=== PATIENT | female | born 1940 | race Caucasian/White ===

== ENCOUNTER 2017-01-16 14:57 | Inpatient (IN) | payer MEDICARE, OTHER ==
[2017-01-16] MEDS ORDERED: ENOXAPARIN SODIUM INJ 100 MG/1 ML DISP.SYRIN SUBCUT ONE (15:23)
--- NOTE | 2017-01-16 15:27 | ER Document Report ---
ED General - General Stated Complaint: DIFFICULTY BREATHING Time Seen by Provider: 01/16/17 15:21 Mode of Arrival: Medic Information source: Patient Notes: 76-year-old female with a history of hypertension, GERD, restrictive lung disease from scoliosis, asthma. Patient recently flew up from [place] on January 07 and had an episode of nausea, vomiting and diarrhea for several days after that. She was brought in by ambulance today from her primary care doctor's office because of shortness of breath and wheezing. Patient states normally she is not that short of breath. She denies fever or cough. - HPI Onset: This morning Onset/Duration: Gradual Quality of pain: No pain Severity: None Pain Level: Denies Associated symptoms: Shortness of breath. denies: Chest pain, Fever Exacerbated by: Denies Relieved by: Denies Similar symptoms previously: No Recently seen / treated by doctor: Yes - Related Data Allergies/Adverse Reactions: Benzodiazepines Allergy (Verified 07/03/12 19:19) midazolam HCl [From Versed] Allergy (Verified 07/03/12 19:19) Past Medical History - General Information source: Patient - Social History Smoking Status: Never Smoker Cigarette use (# per day): No Chew tobacco use (# tins/day): No Frequency of alcohol use: None Drug Abuse: None Lives with: Family Family History: Reviewed & Not Pertinent Patient has suicidal ideation: No Patient has homicidal ideation: No - Past Medical History Cardiac Medical History: Reports: Hx Hypertension Denies: Hx Pulmonary Embolism Pulmonary Medical History: Reports: Hx Asthma Denies: Hx Bronchitis, Hx COPD, Hx Pneumonia, Hx Respiratory Failure, Hx Tuberculosis Renal/ Medical History: Denies: Hx End Stage Renal Disease, Hx Kidney Stones, Hx Peritoneal Dialysis Malignancy Medical History: Denies: Hx Lung Cancer GI Medical History: Reports: Hx Gastroesophageal Reflux Disease, Hx Hiatal Hernia. Denies: Hx Crohn's Disease, Hx Irritable Bowel, Hx Liver Failure, Hx Ulcer Musculoskeltal Medical History: Reports Hx Arthritis, Denies Hx Fibromyalgia, Denies Hx Muscular Dystrophy Traumatic Medical History: Denies: Hx Fractures Past Surgical History: Reports: Hx Orthopedic Surgery - right shoulder, right knee, back surgery, right carpal tunnel release, Hx Tonsillectomy. Denies: Hx Colostomy, Hx Pacemaker - Immunizations Hx Diphtheria, Pertussis, Tetanus Vaccination: No Hx Pneumococcal Vaccination: 08/18/10 Review of Systems - Review of Systems Constitutional: denies: Chills, Fever EENT: No symptoms reported Cardiovascular: See HPI Respiratory: See HPI Gastrointestinal: No symptoms reported Genitourinary: No symptoms reported Female Genitourinary: No symptoms reported Musculoskeletal: No symptoms reported Skin: No symptoms reported Hematologic/Lymphatic: No symptoms reported Neurological/Psychological: No symptoms reported Physical Exam - Vital signs Vitals: Pulse Ox 98 01/16/17 15:22 Notes: GENERAL: 76-year-old female history of scoliosis, alert and oriented 3, appears short of breath, vital signs stable. HEAD: Atraumatic, normocephalic. EYES: Extraocular movements intact, sclera anicteric, conjunctiva are normal. ENT: oropharynx clear without exudates. Moist mucous membranes. NECK: Normal range of motion, supple without lymphadenopathy or JVD. LUNGS: Scattered wheezing bilaterally HEART: Regular rate and rhythm without murmurs, rubs or gallops. ABDOMEN: Soft, normoactive bowel sounds. No tenderness to palpation. No guarding, no rebound. No masses appreciated. EXTREMITIES: Normal range of motion, no pitting or edema. No clubbing or cyanosis. NEUROLOGICAL: Cranial nerves II through XII grossly intact. Normal speech, normal gait. PSYCH: Normal mood, normal affect. SKIN: Warm, Dry, normal turgor, no rashes or lesions noted. Course - Vital Signs Vital signs: Temp Pulse Resp BP Pulse Ox 98.6 F 78 20 147/85 H 98 01/16/17 15:27 01/16/17 15:27 01/16/17 18:01 01/16/17 18:01 01/16/17 18:01 - Laboratory Result Diagrams: 01/16/17 15:10 01/16/17 15:10 Laboratory results interpreted by me: 01/16/17 01/16/17 15:10 15:10 MCH 26.9 L RDW 15.4 H Glucose 70 L - Diagnostic Test Radiology reviewed: Image reviewed, Reports reviewed - CTA shows no infiltrates , no pulmonary emboli. There is a large hiatal hernia with the stomach above the diaphragm. The patient has significant scoliosis. - EKG Interpretation by Ma Rate: Normal Rhythm: NSR - EKG shows normal sinus rhythm with a ventricular rate of 89, no acute ST-T wave changes Discharge - Discharge Clinical Impression: Dyspnea, COPD exacerbation Condition: Stable Disposition: ADMITTED INPATIENT Admitting Provider: Hospitalist - Dr. Ferrer Unit Admitted: Telemetry
[2017-01-16 15:34] LABS: ABSOLUTE BASOPHILS # (AUTO) 0.1 10^3/uL (0.0-0.2); ABSOLUTE EOSINOPHILS # (AUTO) 0.1 10^3/uL (0.0-0.6); ABSOLUTE LYMPHOCYTES (AUTO) 2.8 10^3/uL (0.5-4.7); ABSOLUTE MONOCYTES (AUTO) 0.8 10^3/uL (0.1-1.4); ABSOLUTE NEUT (AUTO) 5.5 10^3/uL (1.7-8.2); BASOPHILS % (AUTO) 0.6 % (0-2); EOSINOPHILS % (AUTO) 0.9 % (0-6); HEMATOCRIT 38.2 % (36.0-47.0); HEMOGLOBIN 12.3 g/dL (12.0-15.5); HGB HCT DIFFERENCE -1.3; LYMPHOCYTES % (AUTO) 30.4 % (13-45); MEAN CORPUSCULAR HEMOGLOBIN 26.9 pg (27.0-33.4); MEAN CORPUSCULAR HGB CONC 32.3 g/dL (32.0-36.0); MEAN CORPUSCULAR VOLUME 84 fl (80-97); MONOCYTES % (AUTO) 8.7 % (3-13); RED BLOOD COUNT 4.57 10^6/uL (3.72-5.28); RED CELL DISTRIBUTION WIDTH 15.4 % (11.5-14.0); SEGMENTED NEUTROPHILS % (AUTO) 59.4 % (42-78); WHITE BLOOD COUNT 9.3 10^3/uL (4.0-10.5)
[2017-01-16 15:40] LABS: PROTHROMBIN TIME 13.9 SEC (11.4-15.4)
[2017-01-16 15:50] LABS: ALANINE AMINOTRANSFERASE 28 U/L (9-52); ALKALINE PHOSPHATASE 84 U/L (38-126); ANION GAP 13 (5-19); ASPARTATE AMINO TRANSFERASE 20 U/L (14-36); BILIRUBIN,DIRECT 0.3 mg/dL (0.0-0.4); BILIRUBIN,TOTAL 0.4 mg/dL (0.2-1.3); BLOOD UREA NITROGEN 14 mg/dL (7-20); CALCIUM 9.6 mg/dL (8.4-10.2); CARBON DIOXIDE 26 mmol/L (22-30); CHLORIDE 104 mmol/L (98-107); CREATINE KINASE 93 U/L (30-135); CREATININE RESULT 0.91 mg/dL (0.52-1.25); GLUCOSE 70 mg/dL (75-110); POTASSIUM 3.9 mmol/L (3.6-5.0); TOTAL PROTEIN 7.3 g/dL (6.3-8.2)
[2017-01-16 16:02] LABS: CREATINE KINASE MB 1.28 ng/mL (<4.55)
[2017-01-16 16:03] LABS: TROPONIN I < 0.012 ng/mL
--- NOTE | 2017-01-16 17:29 | RADIOLOGY REPORT (SQ) ---
EXAM DESCRIPTION: CTA CHEST COMPLETED DATE/TIME: 01/16/2017 4:56 pm REASON FOR STUDY: sob COMPARISON: None. TECHNIQUE: CT scan of the chest performed using helical scanning technique with dynamic intravenous contrast injection. Images reviewed with lung, soft tissue and bone windows. Reconstructed coronal and sagittal MPR images reviewed. Additional 3 dimensional post-processing performed to develop Maximal Intensity Projection images (NC P). All images stored on PACS. All CT scanners at this facility use dose modulation, iterative reconstruction, and/or weight based d osing when appropriate to reduce radiation dose to as low as reasonably achievable (ALARA). [facility]: Dose Right [facility]: CareDose [facility]: Dose Right [facility]: Teradose 4D [facility]: 1C [employer] CONTRAST TYPE AND DOSE: 64 mL Isovue 370- low osmolar. RENAL FUNCTION: Creatinine 0.9 BUN 14 RADIATION DOSE: 47.92 mGy. LIMITATIONS: There is some respiratory motion artifact that slightly limits the study. FINDINGS: LUNGS AND PLEURA: Subsegmental atelectasis in the left base. No acute infiltrate. AORTA AND GREAT VESSELS: No aneurysm or dissection. HEART: No pericardial effusion. PULMONARY ARTERIES: No emboli visualized in the main pulmonary arteries or the segmental branches. HILAR AND MEDIASTINAL STRUCTURES: There is a very large hiatal hernia. HARDWARE: None in the chest. UPPER ABDOMEN: No significant findings. Limited exam. THYROID AND OTHER SOFT TISSUES: No masses. No adenopathy. BONES: Marked scoliosis. 3D MIPS: Confirm above findings. OTHER: No other significant finding. IMPRESSION: 1. There is no evidence of pulmonary emboli. 2. There is a large hiatal with the stomach above the diaphragm. 3. There is significant scoliosis. TECHNICAL DOCUMENTATION: JOB ID: [id number] Quality ID # [id number]: Final reports with documentation of one or more dose reduction techniques (e.g., Au tomated exposure control, adjustment of the mA and/or kV according to patient size, use of iterative reconstruction technique) 2010 [employer]- All Rights Reserved
[2017-01-16] MEDS ORDERED: IPRATROPIUM/ALBUTEROL 0.5-2.5 MG/3 ML AMPUL NEB ONE (17:47)
[2017-01-16] MEDS ORDERED: ACETAMINOPHEN 325 MG TABLET PO PRN (18:16)
--- NOTE | 2017-01-16 18:28 | PDOC H&P ---
History of Present Illness Admission Date/PCP: 01/16/17 18:02 JOAQUINA PRABHAKAR MD Patient complains of: Shortness of breath History of Present Illness: ADRIAN MADERA is a 76 year old female with past medical history of hypertension, scoliosis presents to the emergency department with shortness of breath. Patient traveled back from visiting her daughter in [place] last week by plane. About 1 day after her flight back she started having flulike symptoms which for the most part resolved. She subsequently visited a friend at a residential facility yesterday. Today she began feeling more short of breath and this was recognized by staff at radiology facility when she was having a mammogram and also pharmacy staff. These individuals although advised her to go to the emergency department for evaluation. Patient states that she does have chronic dyspnea on exertion and requires occasional albuterol inhaler. She does not use oxygen at baseline. She has never formally been diagnosed with lung disease. She has no personal smoking history but has had some secondhand smoke exposure. She denies having fevers or chills with this episode. She denies any productive cough. According to the emergency department staff patient was wheezing on presentation. She has now had nebulizer treatments and I do not appreciate this on my examination. Medications have not been verified. Past Medical History Cardiac Medical History: Reports: Hypertension Denies: Pulmonary Embolism Pulmonary Medical History: Reports: Asthma Denies: Bronchitis, Chronic Obstructive Pulmonary Disease (COPD), Pneumonia, Respiratory Failure, Tuberculosis Renal/ Medical History: Denies: End Stage Renal Disease Malignancy Medical History: Denies: Lung Cancer GI Medical History: Reports: Gastroesophageal Reflux Disease, Hiatal Hernia Denies: Crohn's Disease Musculoskeltal Medical History: Reports: Arthritis Denies: Fibromyalgia Past Surgical History Past Surgical History: Reports: Orthopedic Surgery - right shoulder, right knee , back surgery, right carpal tunnel release, Tonsillectomy Denies: Colostomy, Pacemaker Social History Information Source: Patient Lives with: Alone Smoking Status: Unknown if Ever Smoked Frequency of Alcohol Use: None Hx Recreational Drug Use: No Hx Prescription Drug Abuse: No - Advance Directive Resuscitation Status: Full Code Surrogate healthcare decision maker:: Daughter-Yuko Tan Family History Family History: COPD Parental Family History Reviewed: Yes Children Family History Reviewed: Yes Sibling(s) Family History Reviewed.: Yes Medication/Allergy Home Medications: Albuterol Sulfate [Proventil HFA] 6.7 gm IH PRN PRN 07/03/12 Meloxicam [Mobic 7.5 mg Tablet] 7.5 mg PO 07/03/12 Omeprazole [Prilosec 40 mg Capsule] 40 mg PO DAILY 07/03/12 Azithromycin [Zithromax 250 mg Tablet] 250 mg PO ASDIR PRN #6 tablet 07/04/12 Ciprofloxacin HCl/Hc [Cipro Hc Otic Suspension 10 ml] 1 drop OT Q12 #0 bottle Enalapril Maleate [Vasotec 10 mg Tablet] 10 mg PO DAILY #30 07/04/12 Allergies/Adverse Reactions: Benzodiazepines Allergy (Verified 07/03/12 19:19) midazolam HCl [From Versed] Allergy (Verified 07/03/12 19:19) Review of Systems Constitutional: ABSENT: chills, fever(s), headache(s), weight gain, weight loss Eyes: ABSENT: visual disturbances Ears: ABSENT: hearing changes Cardiovascular: ABSENT: chest pain, dyspnea on exertion, edema, orthropnea, palpitations Respiratory: PRESENT: dyspnea. ABSENT: cough, hemoptysis Gastrointestinal: ABSENT: abdominal pain, constipation, diarrhea, hematemesis, hematochezia, nausea, vomiting Genitourinary: ABSENT: dysuria, hematuria Musculoskeletal: ABSENT: joint swelling Integumentary: ABSENT: rash, wounds Neurological: ABSENT: abnormal gait, abnormal speech, confusion, dizziness, focal weakness, syncope Psychiatric: ABSENT: anxiety, depression, homidical ideation, suicidal ideation Endocrine: ABSENT: cold intolerance, heat intolerance, polydipsia, polyuria Hematologic/Lymphatic: ABSENT: easy bleeding, easy bruising Physical Exam Vital Signs: Temp Pulse Resp BP Pulse Ox 98.6 F 78 26 H 141/86 H 91 L 01/16/17 15:27 01/16/17 15:27 01/16/17 17:22 01/16/17 17:22 01/16/17 17:22 PHYSICAL EXAM: GENERAL: Appears well, no acute distress HEENT: Normocephalic, no scleral icterus, conjunctiva clear, EOEM intact, PERRLA , moist mucous membranes NECK: trachea midline, no thyromegally RESPIRATORY: Clear to auscultation, no wheezes/rhonchi CARDIAC: Regular rate and rhythm, no murmur/ritesh/rub ABDOMEN: Soft, no distension, no tenderness, no guarding, normal bowel sounds, negative Peck sign RECTAL: deferred : deferred EXTREMITIES: No edema, cyanosis, clubbing MUSCULOSKELETAL: No joint swelling or deformity VASCULAR: normal peripheral pulses NEUROLOGIC: Alert, oriented to person/place/time, normal speech, cranial nerves grossly intact, 5/5 strength in all extremities, tactile sensation intact in all extremities SKIN: No rash, no wounds, no worrisome skin lesions PSYCHIATRIC: Normal mood, normal affect Results Impressions: Chest/Abdomen CTA 01/16/17 16:18 IMPRESSION: 1. There is no evidence of pulmonary emboli. 2. There is a large hiatal with the stomach above the diaphragm. 3. There is significant scoliosis. Assessment & Plan - Diagnosis (1) Acute bronchitis Is this a current diagnosis for this admission?: YesPlan: Patient will be placed in observation status overnight since I have concerns about her dyspnea and the fact that she lives alone. I will start her on prednisone 40 mg daily and doxycycline 100 mg daily. As needed albuterol nebulizer treatments. (2) Dyspnea Is this a current diagnosis for this admission?: YesPlan: CTA of chest negative for pulmonary embolism, negative for pulmonary infiltrate , shows large hiatal hernia. Dyspnea likely secondary to acute bronchitis. (3) Hypertension Is this a current diagnosis for this admission?: Yes (4) Hiatal hernia Is this a current diagnosis for this admission?: Yes - Time Time Spent: 50 to 70 Minutes Anticipated discharge: Home Within: within 24 hours
[2017-01-16] MEDS ORDERED: DOXYCYCLINE HYCLATE 100 MG TABLET PO ONE (19:00)
[2017-01-16] MEDS ORDERED: PREDNISONE 20 MG TABLET PO ONE (19:00)
[2017-01-16 21:54] LABS: CREATINE KINASE MB 1.02 ng/mL (<4.55)
[2017-01-16 21:58] LABS: TROPONIN I < 0.012 ng/mL
[2017-01-16] MEDS: BUDESONIDE/FORMOTEROL 80-4.5 MCG 60 PUFF/6.9 GM MDI IH SCH (22:43)
[2017-01-17] MEDS: ALBUTEROL SULFATE 0.083% NEB 2.5 MG/3 ML AMPUL NEB PRN ×4 (00:29→20:40)
[2017-01-17 04:21] LABS: CREATINE KINASE MB 0.92 ng/mL (<4.55); TROPONIN I < 0.012 ng/mL
[2017-01-17] MEDS: DOXYCYCLINE HYCLATE 100 MG TABLET PO SCH ×2 (06:48→17:12)
--- NOTE | 2017-01-17 08:55 | EKG REPORT ---
SEVERITY:- ABNORMAL ECG - SINUS RHYTHM PROBABLE LVH WITH SECONDARY REPOL ABNRM : Confirmed by: Ambrosio Kessler 17-Jan-2017 08:54:34
--- NOTE | 2017-01-17 08:55 | EKG REPORT ---
SEVERITY:- NORMAL ECG - SINUS RHYTHM : Confirmed by: Ambrosio Kessler 17-Jan-2017 08:54:23
[2017-01-17] MEDS: PREDNISONE 20 MG TABLET PO SCH (09:05)
[2017-01-17] MEDS: ENOXAPARIN SODIUM INJ 40 MG/0.4 ML DISP.SYRIN SUBCUT SCH (09:05)
[2017-01-17] MEDS: BUDESONIDE/FORMOTEROL 80-4.5 MCG 60 PUFF/6.9 GM MDI IH SCH ×2 (09:11→21:21)
[2017-01-17 09:37] LABS: CREATINE KINASE MB 1.07 ng/mL (<4.55)
[2017-01-17 09:38] LABS: TROPONIN I < 0.012 ng/mL
--- NOTE | 2017-01-17 12:38 | PDOC PROGRESS REPORT ---
Subjective Progress Note for:: 01/17/17 Subjective:: Patient continues to have shortness of breath at rest. She has no fever, chills , cough, sore throat, headache. Physical Exam Vital Signs: Temp Pulse Resp BP Pulse Ox 98.2 F 108 H 22 H 142/82 H 99 01/17/17 11:48 01/17/17 11:48 01/17/17 11:48 01/17/17 11:48 01/17/17 11:48 Intake & Output 01/16/17 01/17/17 01/18/17 06:59 06:59 06:59 Intake Total 303 Output Total 450 Balance -147 Weight 63 kg GENERAL: No acute distress HEENT: Conjunctiva clear, nonicteric, moist mucous membranes, no JVD, midline trachea RESPIRATORY: Mildly tachypneic, wheezing with forced expiration CARDIAC: Regular rate and rhythm, no murmurs/gallops/rubs ABDOMEN: Soft, nondistended, nontender, positive bowel sounds, no rebound, no guarding EXTREMETIES: No edema, cyanosis, clubbing NEUROLOGIC: Alert, oriented to person/place/time, CN's grossly intact, no focal deficits SKIN: No rash, wounds PSYCH: Normal mood, normal affect Results Laboratory Results: 01/16/17 01/16/17 01/17/17 21:12 21:12 03:24 Creatine Kinase 92 73 CK-MB (CK-2) 1.02 Troponin I < 0.012 01/17/17 01/17/17 01/17/17 03:24 08:48 08:48 Creatine Kinase 75 CK-MB (CK-2) 0.92 1.07 Troponin I < 0.012 < 0.012 Impressions: Chest/Abdomen CTA 01/16/17 16:18 IMPRESSION: 1. There is no evidence of pulmonary emboli. 2. There is a large hiatal with the stomach above the diaphragm. 3. There is significant scoliosis. Assessment & Plan - Diagnosis (1) Acute bronchitis Is this a current diagnosis for this admission?: YesPlan: Continue prednisone and doxycycline. (2) Dyspnea Is this a current diagnosis for this admission?: YesPlan: CTA of chest negative for pulmonary embolism, negative for pulmonary infiltrate , shows large hiatal hernia. Dyspnea likely secondary to acute bronchitis. That being said I would have expected her to be better. Check proBNP level and echocardiogram. (3) Hypertension Is this a current diagnosis for this admission?: Yes (4) Hiatal hernia Is this a current diagnosis for this admission?: Yes - Time Time Spent with patient: 25-34 minutes
[2017-01-18] MEDS: DOXYCYCLINE HYCLATE 100 MG TABLET PO SCH ×2 (06:41→17:55)
[2017-01-18] MEDS: PREDNISONE 20 MG TABLET PO SCH (10:37)
[2017-01-18] MEDS: ENOXAPARIN SODIUM INJ 40 MG/0.4 ML DISP.SYRIN SUBCUT SCH (10:37)
[2017-01-18] MEDS: BUDESONIDE/FORMOTEROL 80-4.5 MCG 60 PUFF/6.9 GM MDI IH SCH ×2 (10:39→21:51)
--- NOTE | 2017-01-18 12:15 | XCELERA REPORT ---
[address] [address] Transthoracic Echocardiogram Report Name: ADRIAN MADERA Age: 76 yrs Gender: Female : 1940 Patient Status: Inpatient Patient Location: [id number] Study Date: 01/17/2017 02:17 PM Height: 56 in Weight: 138 lb BSA: 1.5 m2 Procedure: A two-dimensional transthoracic echocardiogram with color flow and Doppler was performed. The study was technically limited with all images being suboptimal in quality. The study was technically difficult with many images being suboptimal in quality. Reason For Study: DYSPNEA History: DYSPNEA. Ordering Physician: LUCÍA CARBONE Performed By: Lora Yusuf Interpretation Summary The left ventricle is normal in size. There is normal left ventricular wall thickness. LV EF is > than 65% Left ventricular systolic function is normal. Doppler measurements suggest impaired left ventricular relaxation, which is associated with grade I/IV or mild diastolic dysfunction The left ventricular wall motion is normal. The right ventricle is grossly normal size. The right ventricle is not well visualized secondary to technical limitations The left atrial size is normal. There is no evidence of mitral valve prolapse. There is no mitral valve stenosis. There is a trace to mild amount of mitral regurgitation There is no aortic valve stenosis There is no LVOT obstruction. No aortic regurgitation is present. There is no tricuspid stenosis. There is a mild amount of tricuspid regurgitation There is mild pulmonary hypertension by echo RVSP is 37 mm of Hg , with RA mean of 10. There is no pericardial effusion. MMode/2D Measurements \T\ Calculations RVDd: 2.8 cm LVIDd: 4.7 cm FS: 38.6 % Ao root diam: 2.6 cm IVSd: 0.90 cm LVIDs: 2.9 cm EDV(Teich): 102.2 ml LVPWd: 0.96 cmESV(Teich): 31.8 ml Ao root area: 5.2 cm2 EF(Teich): 68.9 % LA dimension: 2.6 cm LVOT diam: 2.1 cm LVOT area: 3.4 cm2 Doppler Measurements \T\ Calculations MV E max cain: MV P1/2t max cain: Ao V2 max: LV V1 max P.4 cm/sec 85.9 cm/sec 146.6 cm/sec 4.1 mmHg MV A max cain: MV P1/2t: 40.9 msec Ao max PG: LV V1 max: 88.4 cm/sec MVA(P1/2t): 5.4 cm2 8.6 mmHg 101.2 cm/sec MV E/A: 0.98 MV dec slope: MIKEL(V,D): 2.4 cm2 614.6 cm/sec2 TV V2 max: PA V2 max: TR max cain: 261.3 cm/sec 80.9 cm/sec 259.3 cm/sec TV max PG: PA max P.6 mmHg TR max P.4 mmHg 26.9 mmHg Left Ventricle The left ventricle is normal in size. There is normal left ventricular wall thickness. LV EF is > than 65%. Left ventricular systolic function is normal. Doppler measurements suggest impaired left ventricular relaxation, which is associated with grade I/IV or mild diastolic dysfunction. The left ventricular wall motion is normal. There is no thrombus. Right Ventricle The right ventricle is grossly normal size. The right ventricle is not well visualized secondary to technical limitations. Atria The right atrium is normal. The left atrial size is normal. Mitral Valve There is no evidence of mitral valve prolapse. There is no vegetation seen on the mitral valve. There is no mitral valve stenosis. There is a trace to mild amount of mitral regurgitation. Aortic Valve The aortic valve is trileaflet. The aortic valve opens well. There is no aortic valvular vegetation. There is no aortic valve stenosis. There is no LVOT obstruction. No aortic regurgitation is present. Tricuspid Valve There is no tricuspid stenosis. There is a mild amount of tricuspid regurgitation. There is mild pulmonary hypertension by echo. RVSP is 37 mm of Hg , with RA mean of 10. Pulmonic Valve There is no pulmonic valvular stenosis. There is no pulmonic valvular regurgitation. Great Vessels The aortic root is normal size. Effusions There is no pericardial effusion. : LUCÍA CARBONE > Reyna Guillaume
--- NOTE | 2017-01-18 14:09 | PDOC PROGRESS REPORT ---
Subjective Progress Note for:: 01/18/17 Subjective:: Patient continues to have shortness of breath at rest. She has no fever, chills , cough, sore throat, headache. Physical Exam Vital Signs: Temp Pulse Resp BP Pulse Ox 97.7 F 90 17 119/61 100 01/18/17 11:50 01/18/17 11:50 01/18/17 11:50 01/18/17 11:50 01/18/17 07:24 Intake & Output 01/17/17 01/18/17 01/19/17 06:59 06:59 06:59 Intake Total 303 1200 Output Total 450 2100 Balance -147 -900 Weight 63 kg 63 kg GENERAL: No acute distress HEENT: Conjunctiva clear, nonicteric, moist mucous membranes, no JVD, midline trachea RESPIRATORY: Clear to auscultation bilaterally, no wheezes, no rhonchi CARDIAC: Regular rate and rhythm, no murmurs/gallops/rubs ABDOMEN: Soft, nondistended, nontender, positive bowel sounds, no rebound, no guarding EXTREMETIES: No edema, cyanosis, clubbing NEUROLOGIC: Alert, oriented to person/place/time, CN's grossly intact, no focal deficits SKIN: No rash, wounds PSYCH: Normal mood, normal affect Results Laboratory Results: 01/16/17 01/16/17 01/17/17 21:12 21:12 03:24 Creatine Kinase 92 73 CK-MB (CK-2) 1.02 Troponin I < 0.012 NT-Pro-B Natriuret Pep 01/17/17 01/17/17 01/17/17 03:24 08:48 08:48 Creatine Kinase 75 CK-MB (CK-2) 0.92 1.07 Troponin I < 0.012 < 0.012 NT-Pro-B Natriuret Pep 01/17/17 08:48 Creatine Kinase CK-MB (CK-2) Troponin I NT-Pro-B Natriuret Pep 212 Impressions: Chest/Abdomen CTA 01/16/17 16:18 IMPRESSION: 1. There is no evidence of pulmonary emboli. 2. There is a large hiatal with the stomach above the diaphragm. 3. There is significant scoliosis. Assessment & Plan - Diagnosis (1) Dyspnea Is this a current diagnosis for this admission?: YesPlan: CTA of chest negative for pulmonary embolism, negative for pulmonary infiltrate , shows large hiatal hernia. Dyspnea likely secondary to acute bronchitis. That being said I would have expected her to be better. ProBNP normal. Echocardiogram shows normal EF, grade 1/4 diastolic dysfunction, no significant valvular disease, right ventricular systolic pressure 37 mmHg, no pericardial effusion. Check VQ scan. Consult Dr. Ca of pulmonary medicine. At this point I have significant concerns about discharging patient home with her current level of dyspnea, ambulatory dysfunction with use of rolling walker at baseline, and the fact that she resides home alone. (2) Acute bronchitis Is this a current diagnosis for this admission?: YesPlan: Continue prednisone and doxycycline. (3) Hypertension Is this a current diagnosis for this admission?: Yes (4) Hiatal hernia Is this a current diagnosis for this admission?: YesPlan: Patient has large hiatal hernia noted on CT scan of chest. Continue proton pump inhibitor for chronic reflux symptoms associated with this. - Time Time Spent with patient: 25-34 minutes Anticipated discharge: Home Within: within 48 hours
--- NOTE | 2017-01-18 14:16 | RADIOLOGY REPORT (SQ) ---
EXAM DESCRIPTION: NM LUNG VENT/PERF SCAN COMPLETED DATE/TIME: 01/18/2017 2:00 pm REASON FOR STUDY: dyspnea R06.00 DYSPNEA, UNSPECIFIED COMPARISON: CT angio chest 01/16/2017 CT angio chest 07/03/2012 Two-view chest 07/03/2012 RADIONUCLIDE AND DOSE: 5.4 millicuries TC-99m MAA Intravenous 32.3 millicuries TC-99m DTPA Inhaled aerosol TECHNIQUE: Eight views of the lungs acquired post ventilation of DTPA aerosol. Eight matching views of the lungs acquired following injection of MAA. LIMITATIONS: None. FINDINGS: On all of the ventilation and perfusion images, there is a large mediastinal defect which correlates with a retrocardiac hernia containing nearly the entire stomach. There is also elevation of the left hemidiaphragm. VENTILATION: Symmetric and homogeneous distribution of DTPA aerosol during ventilatory phase. No sig nificant areas of photopenia. PERFUSION: Perfusion images with normal homogenous activity and no wedge-shaped or segmental defects. No ventilation-perfusion mismatches. OTHER: No other significant finding. IMPRESSION: No findings worrisome for acute pulmonary emboli. Mediastinal defect on the ventilation and perfusion imaging correlating with a large retrocardiac her lino containing nearly the entire stomach. Chronic elevation left hemidiaphragm TECHNICAL DOCUMENTATION: JOB ID: [id number] [employer]- All Rights Reserved
[2017-01-18] MEDS: ALBUTEROL SULFATE 0.083% NEB 2.5 MG/3 ML AMPUL NEB PRN (14:30)
[2017-01-18] MEDS: LANSOPRAZOLE 30 MG TAB.RAP.DR PO SCH (17:55)
[2017-01-19] MEDS: DOXYCYCLINE HYCLATE 100 MG TABLET PO SCH ×2 (04:34→17:17)
[2017-01-19] MEDS: LANSOPRAZOLE 30 MG TAB.RAP.DR PO SCH ×2 (10:10→17:17)
[2017-01-19] MEDS: BUDESONIDE/FORMOTEROL 80-4.5 MCG 60 PUFF/6.9 GM MDI IH SCH ×2 (10:10→23:36)
[2017-01-19] MEDS: ENALAPRIL MALEATE 5 MG TABLET PO SCH (10:11)
[2017-01-19] MEDS: PREDNISONE 20 MG TABLET PO SCH (10:11)
[2017-01-19] MEDS: ENOXAPARIN SODIUM INJ 40 MG/0.4 ML DISP.SYRIN SUBCUT SCH (10:11)
[2017-01-19] MEDS: ALBUTEROL SULFATE 0.083% NEB 2.5 MG/3 ML AMPUL NEB PRN (13:42)
[2017-01-19 14:49] LABS: APPEARANCE,URINE CLEAR; BILIRUBIN,URINE NEGATIVE (NEGATIVE); GLUCOSE, URINE NEGATIVE (NEGATIVE); KETONES,URINE NEGATIVE (NEGATIVE); LEUKOCYTE ESTERASE,URINE NEGATIVE (NEGATIVE); NITRITE,URINE NEGATIVE (NEGATIVE); PROTEIN,URINE NEGATIVE (NEGATIVE); URINE SPECIFIC GRAVITY 1.005; UROBILINOGEN,URINE NEGATIVE mg/dL (<2.0)
--- NOTE | 2017-01-19 15:02 | PDOC PROGRESS REPORT ---
Subjective Progress Note for:: 01/19/17 Subjective:: Patient continues to have shortness of breath at rest. She has no fever, chills , cough, sore throat, headache. Physical Exam Vital Signs: Temp Pulse Resp BP Pulse Ox 98.0 F 89 20 145/79 H 98 01/19/17 11:28 01/19/17 13:42 01/19/17 13:42 01/19/17 11:28 01/19/17 13:42 Intake & Output 01/18/17 01/19/17 01/20/17 06:59 06:59 06:59 Intake Total 1200 1284 Output Total 2100 2000 Balance -900 -716 Weight 63 kg 63 kg GENERAL: No acute distress HEENT: Conjunctiva clear, nonicteric, moist mucous membranes, no JVD, midline trachea RESPIRATORY: Clear to auscultation bilaterally, no wheezes, no rhonchi CARDIAC: Regular rate and rhythm, no murmurs/gallops/rubs ABDOMEN: Soft, nondistended, nontender, positive bowel sounds, no rebound, no guarding EXTREMETIES: No edema, cyanosis, clubbing NEUROLOGIC: Alert, oriented to person/place/time, CN's grossly intact, no focal deficits SKIN: No rash, wounds PSYCH: Normal mood, normal affect Results Laboratory Results: 01/19/17 14:15 Urine Color STRAW Urine Appearance CLEAR Urine pH 6.0 Ur Specific [place] 1.005 Urine Protein NEGATIVE Urine Glucose (UA) NEGATIVE Urine Ketones NEGATIVE Urine Blood NEGATIVE Urine Nitrite NEGATIVE Ur Leukocyte Esterase NEGATIVE Urine WBC (Auto) 0 Urine RBC (Auto) 0 01/16/17 01/16/17 01/17/17 21:12 21:12 03:24 Creatine Kinase 92 73 CK-MB (CK-2) 1.02 Troponin I < 0.012 NT-Pro-B Natriuret Pep 01/17/17 01/17/17 01/17/17 03:24 08:48 08:48 Creatine Kinase 75 CK-MB (CK-2) 0.92 1.07 Troponin I < 0.012 < 0.012 NT-Pro-B Natriuret Pep 01/17/17 08:48 Creatine Kinase CK-MB (CK-2) Troponin I NT-Pro-B Natriuret Pep 212 Impressions: Chest/Abdomen CTA 01/16/17 16:18 IMPRESSION: 1. There is no evidence of pulmonary emboli. 2. There is a large hiatal with the stomach above the diaphragm. 3. There is significant scoliosis. Lung Scan-VQ NM 01/18/17 00:00 IMPRESSION: No findings worrisome for acute pulmonary emboli. Mediastinal defect on the ventilation and perfusion imaging correlating with a large retrocardiac hernia containing nearly the entire stomach. Chronic elevation left hemidiaphragm Assessment & Plan - Diagnosis (1) Dyspnea Is this a current diagnosis for this admission?: YesPlan: CTA of chest negative for pulmonary embolism, negative for pulmonary infiltrate , shows large hiatal hernia. Dyspnea likely multifactorial and secondary to acute bronchitis, reactive airway disease, kyphoscoliosis, large hiatal hernia. ProBNP normal. Echocardiogram shows normal EF, grade 1/4 diastolic dysfunction, no significant valvular disease, right ventricular systolic pressure 37 mmHg, no pericardial effusion. Check VQ scan. Consult Dr. Ca of pulmonary medicine. At this point I have significant concerns about discharging patient home with her current level of dyspnea, ambulatory dysfunction with use of rolling walker at baseline, and the fact that she resides home alone. (2) Acute bronchitis Is this a current diagnosis for this admission?: YesPlan: Continue prednisone and doxycycline. (3) Hypertension Is this a current diagnosis for this admission?: YesPlan: Continue Vasotec. (4) Hiatal hernia Is this a current diagnosis for this admission?: YesPlan: I have discussed the case with surgery and they feel that this may be contributing to patient's shortness of breath and the patient may benefit from fundoplication. I would like to discuss this more with Dr. Simmons of surgery per daughter's (Yuko Tan) request. I will then have further discussion with patient and patient's daughter. (5) Ambulatory dysfunction Is this a current diagnosis for this admission?: YesPlan: This is very concerning as patient lives alone and has significant dyspnea with exertion. I will have physical therapy evaluate patient. She may need to go to a rehab facility prior to returning home alone. - Time Time Spent with patient: 25-34 minutes Anticipated discharge: Acute Rehab
[2017-01-20] MEDS: DOXYCYCLINE HYCLATE 100 MG TABLET PO SCH (06:38)
[2017-01-20] MEDS ORDERED: PREDNISONE 20 MG TABLET PO SCH (08:00)
[2017-01-20] MEDS: ALBUTEROL SULFATE 0.083% NEB 2.5 MG/3 ML AMPUL NEB PRN (10:50)
[2017-01-20] MEDS: LANSOPRAZOLE 30 MG TAB.RAP.DR PO SCH ×2 (10:59→17:10)
[2017-01-20] MEDS: ENALAPRIL MALEATE 5 MG TABLET PO SCH (11:00)
[2017-01-20] MEDS: ENOXAPARIN SODIUM INJ 40 MG/0.4 ML DISP.SYRIN SUBCUT SCH (11:02)
--- NOTE | 2017-01-20 13:39 | PDOC PROGRESS REPORT ---
Subjective Progress Note for:: 01/20/17 Subjective:: Shortness of breath has improved as compared to admission. Patient does continue to have dyspnea at rest and with minimal exertion. She has no fever, chills, cough, sore throat, headache, chest pain. Physical Exam Vital Signs: Temp Pulse Resp BP Pulse Ox 97.7 F 86 20 124/78 98 01/20/17 07:41 01/20/17 10:51 01/20/17 10:51 01/20/17 07:41 01/20/17 10:51 Intake & Output 01/19/17 01/20/17 01/21/17 06:59 06:59 06:59 Intake Total 1284 724 Output Total 2000 500 Balance -716 224 Weight 63 kg 63 kg GENERAL: No acute distress HEENT: Conjunctiva clear, nonicteric, moist mucous membranes, no JVD, midline trachea RESPIRATORY: Clear to auscultation bilaterally, no wheezes, no rhonchi CARDIAC: Regular rate and rhythm, no murmurs/gallops/rubs ABDOMEN: Soft, nondistended, nontender, positive bowel sounds, no rebound, no guarding EXTREMETIES: No edema, cyanosis, clubbing NEUROLOGIC: Alert, oriented to person/place/time, CN's grossly intact, no focal deficits SKIN: No rash, wounds PSYCH: Normal mood, normal affect Musculoskeletal: Kyphoscoliosis noted thoracic spine Results Laboratory Results: 01/19/17 14:15 Urine Color STRAW Urine Appearance CLEAR Urine pH 6.0 Ur Specific [place] 1.005 Urine Protein NEGATIVE Urine Glucose (UA) NEGATIVE Urine Ketones NEGATIVE Urine Blood NEGATIVE Urine Nitrite NEGATIVE Ur Leukocyte Esterase NEGATIVE Urine WBC (Auto) 0 Urine RBC (Auto) 0 01/16/17 01/16/17 01/17/17 21:12 21:12 03:24 Creatine Kinase 92 73 CK-MB (CK-2) 1.02 Troponin I < 0.012 NT-Pro-B Natriuret Pep 01/17/17 01/17/17 01/17/17 03:24 08:48 08:48 Creatine Kinase 75 CK-MB (CK-2) 0.92 1.07 Troponin I < 0.012 < 0.012 NT-Pro-B Natriuret Pep 01/17/17 08:48 Creatine Kinase CK-MB (CK-2) Troponin I NT-Pro-B Natriuret Pep 212 Impressions: Chest/Abdomen CTA 01/16/17 16:18 IMPRESSION: 1. There is no evidence of pulmonary emboli. 2. There is a large hiatal with the stomach above the diaphragm. 3. There is significant scoliosis. Lung Scan-VQ NM 01/18/17 00:00 IMPRESSION: No findings worrisome for acute pulmonary emboli. Mediastinal defect on the ventilation and perfusion imaging correlating with a large retrocardiac hernia containing nearly the entire stomach. Chronic elevation left hemidiaphragm Assessment & Plan - Diagnosis (1) Dyspnea Is this a current diagnosis for this admission?: YesPlan: CTA of chest negative for pulmonary embolism, negative for pulmonary infiltrate , shows large hiatal hernia. Dyspnea likely multifactorial and secondary to acute bronchitis, reactive airway disease, kyphoscoliosis, large hiatal hernia. ProBNP normal. Echocardiogram shows normal EF, grade 1/4 diastolic dysfunction, no significant valvular disease, right ventricular systolic pressure 37 mmHg, no pericardial effusion. VQ scan unremarkable. Check Cardiolite stress test. Patient evaluated by Dr. Ca of pulmonary medicine. He feels that large hiatal hernia may be contributing significantly in terms of both mass-effect and the fact that reflux disease may be triggering reactive airway disease. Case was also discussed with Dr. Simmons of surgery and he feels the patient would benefit from laparoscopic fundoplication. He feels this would better be performed at a tertiary care facility. I have discussed this with patient and patient's daughter and they will decide if they want to have this done in this area or have this done in [place] where patient daughter resides. (2) Acute bronchitis Is this a current diagnosis for this admission?: YesPlan: Discontinue prednisone and doxycycline. (3) Hypertension Is this a current diagnosis for this admission?: Yes (4) Hiatal hernia Is this a current diagnosis for this admission?: YesPlan: I have discussed the case with surgery and they feel that this may be contributing to patient's shortness of breath and the patient may benefit from fundoplication. I have discussed this with patient and patient's daughter (Dr. Yuok Tan) they will decide if they want to have this done in the local area or if patient will have this done in [place] where Dr. Tan resides. (5) Ambulatory dysfunction Is this a current diagnosis for this admission?: YesPlan: Patient will be sent to acute rehab for now as she cannot return home alone in her current condition. - Time Anticipated discharge: Acute Rehab Within: within 48 hours
[2017-01-20] MEDS: BUDESONIDE/FORMOTEROL 80-4.5 MCG 60 PUFF/6.9 GM MDI IH SCH ×2 (14:17→22:48)
[2017-01-21] MEDS: ENALAPRIL MALEATE 5 MG TABLET PO SCH (10:00)
[2017-01-21] MEDS: ENOXAPARIN SODIUM INJ 40 MG/0.4 ML DISP.SYRIN SUBCUT SCH (10:00)
[2017-01-21] MEDS: LANSOPRAZOLE 30 MG TAB.RAP.DR PO SCH ×2 (10:00→18:06)
[2017-01-21] MEDS: BUDESONIDE/FORMOTEROL 80-4.5 MCG 60 PUFF/6.9 GM MDI IH SCH ×2 (10:03→21:18)
[2017-01-21] MEDS ORDERED: AMINOPHYLLINE INJ/PF 250 MG/10 ML SDV IV ONE (10:37)
[2017-01-21] MEDS ORDERED: REGADENOSON INJ 0.4 MG/5 ML DISP.SYRIN IV ONE (10:37)
--- NOTE | 2017-01-21 11:37 | ST Inp Modified Barium Swallow ---
Medical Diagnosis - Medical Diagnoses Medical Diagnosis Description & ICD-10 Code(s): hiatal hernia, GERD, dyspnea - ICD-10 Tx Diagnosis Coding (1) Dysphagia, unspecified ICD-10 Code(s): R13.10 - DYSPHAGIA, UNSPECIFIED (2) Dyspnea ICD-10 Code(s): R06.00 - DYSPNEA, UNSPECIFIED (3) Hiatal hernia ICD-10 Code(s): K44.9 - DIAPHRAGMATIC HERNIA WITHOUT OBSTRUCTION OR GANGRENE ST [place] [facility] [place] General Date: 01/21/17 Date of Onset: 01/16/17 - History History Obtained From: Patient - per EMR -: Medical - Per EMR; admitted for difficulty breathing, acute bronchitis, dyspnea, HTN, hiatal hernia, scoliosis. PMHx: HTN, asthma, GERD, hiatal hernia, arthritis. Pt states she did not have difficulty swallowing until after admission, states was no longer taking reflux medications and noticed a "scratching" in the of her throat that would cause her to cough. Medications: Medications Reviewed Allergies: Refer to medical record - Subjective Current Nutritional Means: PO Current PO Diet: Regular Current Symptoms: Coughing Pain: 0/5 - Objective Assessment: Upright, Left Lateral - Food Trials Food Trials Used: Thin liquids, Pureed, Regular The Patient: Was Able to Self Feed - Assessment Labial Function: Within Normal Limits Lingual Function: Within Normal Limits Mandibular Function: Within Normal Limits Dentition: Partial Velo-Pharyngeal Function: Unremarkable Laryngeal Function: Volitional Cough, Volitional Swallow - Pharyngeal Stage Initiation of Pharyngeal Stage: Normal Decreased Laryngeal Elevation: No Reduced Velo-Pharyngeal Closure: no Reduced Pressure Generation: No Reduced Tongue Base Retraction: No Pre-Swallowing Pooling in Valleculae: None Pre-Swallowing Pooling in Pyriforms: None Reduced Thyro-Hyiod Approximation: No Reduced Epiglottic Excursion: No Reduced Pharyngeal Peristalsis: No Post Swallow Residuals in Valleculae: None Post Swallow Residuals in Pyriforms: None - Esophageal Stage Esophageal Stage Comments: Per RA, notes prominent criopharngeus - Impression/Summary Laryngeal Penetration: No Tracheal Aspiration: no Patient Presents With: Normal swallow at eval - safe and effective oral and pharyngeal swallow observed during study Risk of Aspiration: Mild - due to respiratory status Risk of Nutritional Compromise: Mild - Recommendations NPO: no Solid Diet Recommendations: Regular Liquid Diet Recommendations: Thin Dysphagia Therapy with CEO: No Recommended Techniques: Fully Upright During Meal, Small Bites and Sips Supervision: Independent Other Recommendations: 1) DIET: Recommend continued current diet of regular and thin. 2) STRATEGIES: slow rate of intake, small bites and sips. ST educated pt on coordinating respirations and swallowing while eating. SUMMARY: Pt presents with a safe and effective oral and pharyngeal swallow during study. No penetration, aspiration, or residuals observed. Per RA, prominent cricopharyngeous observed. Pt reports "coughing" only began after stopping reflux medications. Symptoms may be consistent with esophageal issues. - Time Total Time: 20 Total Timed Minutes: 0 ST F.L. Impairment Category - Rationale Based On Rationale Based On: Clin Find., Obj Measures - Swallowing Current G8996: CI 1-19% Impaired Goal G8997: CI 1-19% Impaired Discharge G8998: CI 1-19% Impaired
--- NOTE | 2017-01-21 13:15 | Pulmonary Function Test ---
Pulmonary Function Test Date of Procedure:: 01/21/17 INDICATION:: Dyspnea Referring Provider: Dr. Luan Ferrer Sterile Proc Tech: Cindi Johnson [employer] SERVICE STATION ATTENDANT - Report Spirometry: FVC 1.65 L 82% postbronchodilator therapy 1.63 L 81% FEV1 1.21 L 72% postbronchodilator therapy 1.12 L 67% FEV1/FVC % 73 postbronchodilator therapy 69 predicted 83 Lung Volume: Total lung capacity 4.88 L 146% Vital capacity 1.65 L 82% Inspiratory capacity 1.03 L FRC N2 3.65 207% ERV 0.11 RV 3.03 L 227% RV/TLC % 65 predicted 42 Diffusion Capactity: DLCO 7.4 49% DLCO/VA 3.67 106% Impression: Mild obstructive ventilatory defect with insignificant response to bronchodilator therapy. This does not preclude a clinical trial of bronchodilator therapy. Significant hyperinflation and air trapping. No restrictive ventilatory defect. Severe decrease in diffusion capacity.
--- NOTE | 2017-01-21 13:30 | DRAGON STRESS TEST REPORT ---
INTRAVENOUS LEXISCAN CARDIOLITE STRESS TEST USING SINGLE PHOTON EMMISION COMPUTERIZED TOMOGRAPHIC. DATE OF PROCEDURE: January 21, 2017 INDICATION : Dyspnea CARDIAC RISK FACTORS: Hypertension RESTING EKG: Sinus rhythm, minor nonspecific T-wave changes inferiorly. STRESS EKG: No significant changes noted with LexiScan bolus REASON FOR TERMINATION: Protocol. PROCEDURE REPORT: Baseline heart rate 73 beats per minute with blood pressure of 121/73. Patient had no significant complaints. Heart rate at 2 minutes post bolus 111 with a blood pressure of 126/70. 3 minutes post bolus heart rate 97 with blood pressure of 136/70. No significant EKG changes were noted. Patient had no significant complaints during the procedure or postprocedure. Patient injected with Aminophyllin 75 mg at 3 minutes or later after Lexiscan bolus. CONCLUSIONS: Normal EKG and hemodynamic response to IV LexiScan. NUCLEAR DATA: At rest the patient was given 10.37 millicuries of technetium 99 sestamibi injected intravenously. As per protocol rest gated SPECT images were obtained. Subsequently the patient was given intravenous LexiScan at a dose of 0.4 mg in 5 mL intravenously, followed by flush with normal saline. Subsequently the stress dose of 32.6 millicuries of technetium 99 sestamibi was injected intravenously. As per protocol stress gated images were obtained. Images were obtained with patient resting by side rather than overhead. NUCLEAR INTERPRETATION: Both raw and processed data were used for interpretation. Visual, qualitative, computer-generated quantitative data was used. There was good myocardial uptake of technetium compound. Motion artifact and soft tissue attenuations were noted. Increased visceral uptake was noted. Significant retrocardiac uptake was noted felt to be mostly related to hiatal hernia especially in rest imaging and this caused some difficulty with interpretation, no definitive areas of transient perfusion defect noted except for probable small area of mild ischemia in the distal inferolateral wall. SDS score of 1. No definitive areas of fixed perfusion defect or scars noted. EKG gated imaging showed LV EF at 69 %, rest and stress gated EF similar visually. T. I D. ratio was 0.90. Lung heart ratio noted to be within normal limits 0.35. No significant extracardiac and abnormal radiotracer activities were noted. RV free wall uptake was noted to be WNL. IMPRESSION: Also refer to comments under nuclear interpretation. Also test results needs to be interpreted in the context of pretest probability. 1. There is no definitive scintigraphic evidence of LexiScan induced myocardial ischemia, except for probable small area of mild ischemia in the distal inferolateral wall. SDS score of 1. Please refer to comments on the nuclear interpretation. 2. There is no definitive scintigraphic evidence of myocardial infarction/scar. 3. EKG gated imaging shows left ejection fraction of approximately 69 %. 4. Clinical correlation requested as occasionally single vessel disease or balanced ischemia could be missed. In approximately 10% of the cases Lexiscan may not cause adequate vasodilatory stress. RECOMMENDATIONS: Aggressive risk factor modification, medical therapy. Clinical correlation with echocardiogram derived ejection fraction. Inability to exercise by itself can lead to increased cardiovascular event risks. Consider cardiology consultation and or follow-up if clinically indicated. I AM AVAILABLE FOR CARDIOLOGY CONSULTATION AND FOLLOWUP IF REQUESTED BY ANDREA Cervantes M.D. Supervisor [employer] Maintenance entry level web developer, Board certified in cardiovascular diseases, Nuclear cardiology, Echocardiography Cardiac CT and cardiac MRI Ph. [phone] LEONARD
[2017-01-21] MEDS: ALBUTEROL SULFATE 0.083% NEB 2.5 MG/3 ML AMPUL NEB PRN (13:56)
--- NOTE | 2017-01-21 15:14 | PDOC PROGRESS REPORT ---
Subjective Progress Note for:: 01/21/17 Subjective:: been testing all day Physical Exam Vital Signs: Temp Pulse Resp BP Pulse Ox 98.6 F 77 16 147/77 H 98 01/21/17 08:00 01/21/17 14:00 01/21/17 13:58 01/21/17 08:00 01/21/17 13:58 Intake & Output 01/20/17 01/21/17 01/22/17 06:59 06:59 06:59 Intake Total 724 1623 Output Total 500 Balance 224 1623 Weight 63 kg 63 kg General appearance: PRESENT: no acute distress, cooperative, disheveled, other - Kyphoscoliosis severe Head exam: PRESENT: atraumatic, normocephalic Eye exam: PRESENT: conjunctiva pale, EOMI Mouth exam: PRESENT: moist, neck supple, tongue midline Neck exam: PRESENT: carotid bruit Respiratory exam: PRESENT: decreased breath sounds, prolonged expiratory phas, rhonchi, symmetrical, unlabored Cardiovascular exam: PRESENT: RRR, +S1, +S2 Pulses: PRESENT: normal radial pulses GI/Abdominal exam: PRESENT: normal bowel sounds, soft. ABSENT: distended, guarding, mass, organolmegaly, rebound, tenderness Rectal exam: PRESENT: deferred Extremities exam: PRESENT: +1 edema Neurological exam: PRESENT: alert, awake Psychiatric exam: PRESENT: normal mood Skin exam: PRESENT: dry, warm Results Laboratory Results: 01/16/17 01/16/17 01/17/17 21:12 21:12 03:24 Creatine Kinase 92 73 CK-MB (CK-2) 1.02 Troponin I < 0.012 NT-Pro-B Natriuret Pep 01/17/17 01/17/17 01/17/17 03:24 08:48 08:48 Creatine Kinase 75 CK-MB (CK-2) 0.92 1.07 Troponin I < 0.012 < 0.012 NT-Pro-B Natriuret Pep 01/17/17 08:48 Creatine Kinase CK-MB (CK-2) Troponin I NT-Pro-B Natriuret Pep 212 Impressions: Chest/Abdomen CTA 01/16/17 16:18 IMPRESSION: 1. There is no evidence of pulmonary emboli. 2. There is a large hiatal with the stomach above the diaphragm. 3. There is significant scoliosis. Lung Scan-VQ [place] 01/18/17 00:00 IMPRESSION: No findings worrisome for acute pulmonary emboli. Mediastinal defect on the ventilation and perfusion imaging correlating with a large retrocardiac hernia containing nearly the entire stomach. Chronic elevation left hemidiaphragm Assessment & Plan - Diagnosis (1) Kyphoscoliosis deformity of spine Is this a current diagnosis for this admission?: YesPlan: Contributing factor to respiratory (2) Acute bronchitis Is this a current diagnosis for this admission?: Yes (3) Dysphagia, unspecified Is this a current diagnosis for this admission?: YesPlan: Modified barium swallow;Consider laparoscopic Willis fundoplication due to large hiatal hernia (4) Hiatal hernia Is this a current diagnosis for this admission?: YesPlan: As discussed with Dr. Ferrer
--- NOTE | 2017-01-21 15:19 | PDOC CONSULTATION ---
Consultation Consult Date: 01/20/17 Attending physician:: LUCÍA CARBONE Consult reason:: dyspnea History of Present Illness Admission Date/PCP: 01/16/17 18:17 JOAQUINA PRABHAKAR MD History of Present Illness: ADRIAN MADERA is a 76 year old female with past medical history of hypertension, scoliosis presents to the emergency department with shortness of breath. Patient traveled back from visiting her daughter in [place] last week by plane. About 1 day after her flight back she started having flulike symptoms which for the most part resolved. She subsequently visited a friend at a shelter facility yesterday. Today she began feeling more short of breath and this was recognized by staff at radiology facility when she was having a mammogram and also pharmacy staff. These individuals although advised her to go to the emergency department for evaluation. Patient states that she does have chronic dyspnea on exertion and requires occasional albuterol inhaler. She does not use oxygen at baseline. She has never formally been diagnosed with lung disease. She has no personal smoking history but has had some secondhand smoke exposure. She denies having fevers or chills with this episode. She denies any productive cough. Past Medical History Cardiac Medical History: Reports: Hypertension Denies: Pulmonary Embolism Pulmonary Medical History: Reports: Asthma Denies: Bronchitis, Chronic Obstructive Pulmonary Disease (COPD), Pneumonia, Respiratory Failure, Tuberculosis Renal/ Medical History: Denies: End Stage Renal Disease Malignancy Medical History: Denies: Lung Cancer GI Medical History: Reports: Gastroesophageal Reflux Disease, Hiatal Hernia Denies: Crohn's Disease Musculoskeltal Medical History: Reports: Arthritis Denies: Fibromyalgia Past Surgical History Past Surgical History: Reports: Orthopedic Surgery - right shoulder, right knee , back surgery, right carpal tunnel release, Tonsillectomy Denies: Colostomy, Pacemaker Social History Information Source: [facility] Records Lives with: Family Smoking Status: Never Smoker Passive smoke exposure as: Both Frequency of Alcohol Use: None Hx Recreational Drug Use: No Hx Prescription Drug Abuse: No - Advance Directive Resuscitation Status: Full Code Family History Family History: Reviewed & Not Pertinent Parental Family History Reviewed: Yes Children Family History Reviewed: Yes Sibling(s) Family History Reviewed.: Yes Medication/Allergy Home Medications: Albuterol Sulfate [Proair HFA] 1 puff IH Q4HP PRN 01/16/17 Enalapril Maleate [Vasotec 5 mg Tablet] 5 mg PO DAILY 01/16/17 Ergocalciferol (Vitamin D2) [Drisdol 50,000 unit (1.25MG) Capsule] 50,000 units PO [id number] 01/16/17 Omeprazole 20 mg PO BID 01/16/17 Allergies/Adverse Reactions: Benzodiazepines Allergy (Verified 07/03/12 19:19) midazolam HCl [From Versed] Allergy (Verified 07/03/12 19:19) Physical Exam Vital Signs: Temp Pulse Resp BP Pulse Ox 98.6 F 70 18 147/77 H 100 01/21/17 08:00 01/21/17 08:00 01/21/17 08:00 01/21/17 08:00 01/21/17 08:00 Intake & Output 01/20/17 01/21/17 01/22/17 06:59 06:59 06:59 Intake Total 724 1623 Output Total 500 Balance 224 1623 Weight 63 kg 63 kg General appearance: PRESENT: no acute distress, cooperative, disheveled, well- developed Head exam: PRESENT: atraumatic Eye exam: PRESENT: conjunctiva pale, EOMI Neck exam: ABSENT: carotid bruit, JVD, lymphadenopathy, thyromegaly Respiratory exam: PRESENT: decreased breath sounds, prolonged expiratory phas, rales, rhonchi, symmetrical, unlabored Cardiovascular exam: PRESENT: RRR, +S1, +S2 Pulses: PRESENT: normal radial pulses GI/Abdominal exam: PRESENT: normal bowel sounds, soft. ABSENT: distended, guarding, mass, organolmegaly, rebound, tenderness Rectal exam: PRESENT: deferred Musculoskeletal exam: PRESENT: normal inspection Neurological exam: PRESENT: alert, awake Psychiatric exam: PRESENT: normal mood Skin exam: PRESENT: dry, warm Results Laboratory Results: 01/16/17 01/16/17 01/17/17 21:12 21:12 03:24 Creatine Kinase 92 73 CK-MB (CK-2) 1.02 Troponin I < 0.012 NT-Pro-B Natriuret Pep 01/17/17 01/17/17 01/17/17 03:24 08:48 08:48 Creatine Kinase 75 CK-MB (CK-2) 0.92 1.07 Troponin I < 0.012 < 0.012 NT-Pro-B Natriuret Pep 01/17/17 08:48 Creatine Kinase CK-MB (CK-2) Troponin I NT-Pro-B Natriuret Pep 212 Impressions: Chest/Abdomen CTA 01/16/17 16:18 IMPRESSION: 1. There is no evidence of pulmonary emboli. 2. There is a large hiatal with the stomach above the diaphragm. 3. There is significant scoliosis. Lung Scan-VQ NM 01/18/17 00:00 IMPRESSION: No findings worrisome for acute pulmonary emboli. Mediastinal defect on the ventilation and perfusion imaging correlating with a large retrocardiac hernia containing nearly the entire stomach. Chronic elevation left hemidiaphragm Assessment & Plan - Diagnosis (1) Ambulatory dysfunction Is this a current diagnosis for this admission?: YesPlan: Very limited based on anatomical reasons (2) Dysphagia, unspecified Is this a current diagnosis for this admission?: YesPlan: Discussed with Dr. Carbone modified barium swallow (3) Dyspnea Is this a current diagnosis for this admission?: Yes (4) Hiatal hernia Is this a current diagnosis for this admission?: YesPlan: As discussed with Dr. Carbone (5) Kyphoscoliosis deformity of spine Is this a current diagnosis for this admission?: YesPlan: Unchanged
[2017-01-21] MEDS ORDERED: KETOROLAC TROMETHAMINE INJ/PF 30 MG/1 ML SDV IV PRN (16:01)
--- NOTE | 2017-01-21 17:05 | RADIOLOGY REPORT (SQ) ---
EXAM DESCRIPTION: CHARLINE SWALLOW COMPLETED DATE/TIME: 01/21/2017 11:31 am REASON FOR STUDY: Dysphagia unspecified R 13.10 food in pharynx causing other injury, sequela T17.22 8S hiatal hernia, GERD, dyspnea R06.00 DYSPNEA, UNSPECIFIED R53.1 WEAKNESS COMPARISON: None. TECHNIQUE: Videofluoroscopic swallowing examination was performed in conjunction with speech patholo gy. Videofluoroscopic imaging was obtained and reviewed and these are the findings: RADIATION DOSE: Total fluoroscopy time: 1 minutes 18 seconds 2 fluoroscopy images saved to PACS. LIMITATIONS: None FINDINGS: The patient was brought into the fluoro room and placed upright on a modified barium swall ow chair. The patient was then given multiple consistencies mixed with barium to swallow under live fluoroscopic video guidance. According to the Speech Pathologist there was no laryngeal penetration and no tracheal aspiration. No significant oral or pharyngeal phase delay noted. No significant pos t swallow residual seen. A prominent cricopharyngeus impression is noted in the posterior aspect of the cervical esophagus which did not impede the swallow. Please see speech pathology report for furt her details and recommendations. IMPRESSION: NO EVIDENCE OF LARYNGEAL PENETRATION OR TRACHEAL ASPIRATIONPLEASE SEE SPEECH PATHOLOGIST REPORT FOR OTHER FINDINGS AND RECOMMENDATIONS. COMMENT: Quality ID [id number]: Final reports for procedures using fluoroscopy that document radiation exp osure indices, or exposure time and number of fluorographic images (if radiation exposure indices are not available) TECHNICAL DOCUMENTATION: JOB ID: [id number] [employer]- All Rights Reserved
[2017-01-21] MEDS ORDERED: TRAMADOL HCL 50 MG TABLET PO PRN (22:07)
--- NOTE | 2017-01-21 22:09 | PDOC PROGRESS REPORT ---
Subjective Progress Note for:: 01/21/17 Subjective:: Patient does complain of her normal chronic back discomfort. She reports her breathing is improved when she rests. Denies chest pain, nausea, vomiting, fever, chills, abdominal pain, constipation , diarrhea. Physical Exam Vital Signs: Temp Pulse Resp BP Pulse Ox 97.5 F 60 16 114/64 100 01/20/17 19:44 01/21/17 02:00 01/20/17 19:44 01/20/17 19:44 01/20/17 19:44 Intake & Output 01/20/17 01/21/17 01/22/17 06:59 06:59 06:59 Intake Total 724 1623 Output Total 500 Balance 224 1623 Weight 63 kg 63 kg Exam: GENERAL: No acute distress HEENT: Conjunctiva clear, nonicteric, moist mucous membranes, no JVD, midline trachea RESPIRATORY: Clear to auscultation bilaterally, no wheezes, no rhonchi CARDIAC: Regular rate and rhythm, no murmurs/gallops/rubs ABDOMEN: Soft, nondistended, nontender, positive bowel sounds, no rebound, no guarding EXTREMETIES: No edema, cyanosis, clubbing NEUROLOGIC: Alert, oriented to person/place/time, CN's grossly intact, no focal deficits SKIN: No rash, wounds PSYCH: Normal mood, normal affect Musculoskeletal: Significant kyphoscoliosis noted thoracic spine Results Laboratory Results: 01/16/17 01/16/17 01/17/17 21:12 21:12 03:24 Creatine Kinase 92 73 CK-MB (CK-2) 1.02 Troponin I < 0.012 NT-Pro-B Natriuret Pep 01/17/17 01/17/17 01/17/17 03:24 08:48 08:48 Creatine Kinase 75 CK-MB (CK-2) 0.92 1.07 Troponin I < 0.012 < 0.012 NT-Pro-B Natriuret Pep 01/17/17 08:48 Creatine Kinase CK-MB (CK-2) Troponin I NT-Pro-B Natriuret Pep 212 Impressions: Chest/Abdomen CTA 01/16/17 16:18 IMPRESSION: 1. There is no evidence of pulmonary emboli. 2. There is a large hiatal with the stomach above the diaphragm. 3. There is significant scoliosis. Lung Scan-VQ RI 01/18/17 00:00 IMPRESSION: No findings worrisome for acute pulmonary emboli. Mediastinal defect on the ventilation and perfusion imaging correlating with a large retrocardiac hernia containing nearly the entire stomach. Chronic elevation left hemidiaphragm Assessment & Plan - Diagnosis (1) Acute bronchitis Qualifiers: Bronchitis organism: unspecified organism Qualified Code(s): J20.9 - Acute bronchitis, unspecified Is this a current diagnosis for this admission?: YesPlan: Currently improving on doxycycline and a low dose of prednisone. (2) Ambulatory dysfunction Is this a current diagnosis for this admission?: YesPlan: Currently pending rehabilitation placement (3) Dysphagia, unspecified Qualifiers: Dysphagia type: unspecified Qualified Code(s): R13.10 - Dysphagia, unspecified Is this a current diagnosis for this admission?: YesPlan: Speech notes (4) Dyspnea Qualifiers: Dyspnea type: dyspnea on exertion Qualified Code(s): R06.09 - Other forms of dyspnea Is this a current diagnosis for this admission?: YesPlan: Dyspnea is multifactorial secondary to acute bronchitis, significant hiatal hernia, mild obstructive disease, and significant kyphoscoliosis. Appreciate input from pulmonary medicine. (5) Hiatal hernia Is this a current diagnosis for this admission?: YesPlan: Patient has undergone stress test which revealed possible area of ischemia. Patient also undergone PFT. On proton pump inhibitor for this. And at this time I do recommend surgery for this patient. This can be done as an outpatient. (6) Hypertension Is this a current diagnosis for this admission?: YesPlan: stable (7) Kyphoscoliosis deformity of spine Is this a current diagnosis for this admission?: Yes - Time Time Spent with patient: 35 or more minutes Medications reviewed and adjusted accordingly: Yes Anticipated discharge: Acute Rehab Within: when bed available
[2017-01-21] MEDS ORDERED: PREDNISONE 20 MG TABLET PO ONE (22:30)
[2017-01-22] MEDS: LANSOPRAZOLE 30 MG TAB.RAP.DR PO SCH ×2 (09:13→18:19)
[2017-01-22] MEDS: PREDNISONE 20 MG TABLET PO SCH ×2 (09:13→18:19)
[2017-01-22] MEDS: BUDESONIDE/FORMOTEROL 80-4.5 MCG 60 PUFF/6.9 GM MDI IH SCH ×2 (09:13→22:10)
[2017-01-22] MEDS: ENALAPRIL MALEATE 5 MG TABLET PO SCH (09:13)
[2017-01-22] MEDS: LIDOCAINE 5% (700 MG) TRANSDERMAL ADH..PATCH TP SCH (09:15)
[2017-01-22] MEDS ORDERED: NYSTATIN/DEXAMETH/DIPHEN SUSP 120 ML PO ONE (12:43)
[2017-01-22] MEDS: ALBUTEROL SULFATE 0.083% NEB 2.5 MG/3 ML AMPUL NEB PRN (13:30)
[2017-01-22] MEDS: SODIUM CHLORIDE NASAL SPRAY 44 ML NASL SCH ×2 (13:53→18:22)
--- NOTE | 2017-01-22 18:14 | PDOC PROGRESS REPORT ---
Subjective Progress Note for:: 01/22/17 Subjective:: Patient reports that her breathing is still quite labored. She is not yet back to baseline. Denies chest pain, nausea, vomiting, fever, chills, abdominal pain, constipation , diarrhea. Physical Exam Vital Signs: Temp Pulse Resp BP Pulse Ox 97.3 F 69 16 104/61 100 01/22/17 00:23 01/22/17 02:00 01/22/17 00:23 01/22/17 00:23 01/22/17 00:23 Intake & Output 01/21/17 01/22/17 01/23/17 06:59 06:59 06:59 Intake Total 1623 1891 Output Total 550 Balance 1623 1341 Weight 63 kg 63 kg Exam: GENERAL: No acute distress HEENT: Conjunctiva clear, nonicteric, moist mucous membranes, no JVD, midline trachea RESPIRATORY: Clear to auscultation bilaterally, no wheezes, no rhonchi CARDIAC: Regular rate and rhythm, no murmurs/gallops/rubs ABDOMEN: Soft, nondistended, nontender, positive bowel sounds, no rebound, no guarding EXTREMETIES: No edema, cyanosis, clubbing NEUROLOGIC: Alert, oriented to person/place/time, CN's grossly intact, no focal deficits SKIN: No rash, wounds PSYCH: Normal mood, normal affect Musculoskeletal: Significant kyphoscoliosis noted thoracic spine Results Laboratory Results: 01/16/17 01/16/17 01/17/17 21:12 21:12 03:24 Creatine Kinase 92 73 CK-MB (CK-2) 1.02 Troponin I < 0.012 NT-Pro-B Natriuret Pep 01/17/17 01/17/17 01/17/17 03:24 08:48 08:48 Creatine Kinase 75 CK-MB (CK-2) 0.92 1.07 Troponin I < 0.012 < 0.012 NT-Pro-B Natriuret Pep 01/17/17 08:48 Creatine Kinase CK-MB (CK-2) Troponin I NT-Pro-B Natriuret Pep 212 Impressions: Chest/Abdomen CTA 01/16/17 16:18 IMPRESSION: 1. There is no evidence of pulmonary emboli. 2. There is a large hiatal with the stomach above the diaphragm. 3. There is significant scoliosis. Lung Scan-VQ [place] 01/18/17 00:00 IMPRESSION: No findings worrisome for acute pulmonary emboli. Mediastinal defect on the ventilation and perfusion imaging correlating with a large retrocardiac hernia containing nearly the entire stomach. Chronic elevation left hemidiaphragm Modified Barium Swallow 01/21/17 00:00 IMPRESSION: NO EVIDENCE OF LARYNGEAL PENETRATION OR TRACHEAL ASPIRATIONPLEASE SEE SPEECH PATHOLOGIST REPORT FOR OTHER FINDINGS AND RECOMMENDATIONS. Assessment & Plan - Diagnosis (1) Acute bronchitis Qualifiers: Bronchitis organism: unspecified organism Qualified Code(s): J20.9 - Acute bronchitis, unspecified Is this a current diagnosis for this admission?: YesPlan: Currently improving on doxycycline and a low dose of prednisone. (2) Ambulatory dysfunction Is this a current diagnosis for this admission?: YesPlan: Currently pending rehabilitation placement (3) Dysphagia, unspecified Qualifiers: Dysphagia type: unspecified Qualified Code(s): R13.10 - Dysphagia, unspecified Is this a current diagnosis for this admission?: Yes (4) Dyspnea Qualifiers: Dyspnea type: dyspnea on exertion Qualified Code(s): R06.09 - Other forms of dyspnea Is this a current diagnosis for this admission?: YesPlan: Dyspnea is multifactorial secondary to acute bronchitis, significant hiatal hernia, mild obstructive disease, and significant kyphoscoliosis. Appreciate input from pulmonary medicine. (5) Hiatal hernia Is this a current diagnosis for this admission?: YesPlan: Patient has undergone stress test which revealed possible area of ischemia. Patient also undergone PFT. On proton pump inhibitor for this. And at this time I do recommend surgery for this patient. (6) Hypertension Is this a current diagnosis for this admission?: YesPlan: stable (7) Kyphoscoliosis deformity of spine Is this a current diagnosis for this admission?: Yes - Time Time Spent with patient: 15-24 minutes Medications reviewed and adjusted accordingly: Yes Anticipated discharge: Acute Rehab Within: when bed available
[2017-01-22] MEDS: NYSTATIN/DEXAMETH/DIPHEN SUSP 120 ML PO SCH ×2 (18:23→22:10)
[2017-01-23] MEDS: SODIUM CHLORIDE NASAL SPRAY 44 ML NASL SCH ×4 (01:38→17:36)
[2017-01-23] MEDS: LANSOPRAZOLE 30 MG TAB.RAP.DR PO SCH ×2 (10:44→17:36)
[2017-01-23] MEDS: BUDESONIDE/FORMOTEROL 80-4.5 MCG 60 PUFF/6.9 GM MDI IH SCH (10:45)
[2017-01-23] MEDS: PREDNISONE 20 MG TABLET PO SCH ×2 (10:45→17:36)
[2017-01-23] MEDS: LIDOCAINE 5% (700 MG) TRANSDERMAL ADH..PATCH TP SCH (10:45)
[2017-01-23] MEDS: NYSTATIN/DEXAMETH/DIPHEN SUSP 120 ML PO SCH ×3 (10:45→17:36)
[2017-01-23] MEDS: ENALAPRIL MALEATE 5 MG TABLET PO SCH (10:45)
[2017-01-23] MEDS ORDERED: KETOROLAC TROMETHAMINE INJ/PF 30 MG/1 ML SDV IV PRN (11:01)
[2017-01-23] MEDS: ALBUTEROL SULFATE 0.083% NEB 2.5 MG/3 ML AMPUL NEB PRN (12:03)
[2017-01-23] MEDS ORDERED: HYDROXYZINE HCL 10 MG TABLET PO PRN (13:24)
[2017-01-23 13:36] VITALS: BP 130/69
--- NOTE | 2017-01-23 14:12 | PDOC PROGRESS REPORT ---
Subjective Progress Note for:: 01/23/17 Subjective:: Awake and alert slept well last night Physical Exam Vital Signs: Temp Pulse Resp BP Pulse Ox 97.5 F 72 16 130/69 H 100 01/23/17 12:07 01/23/17 12:07 01/23/17 12:07 01/23/17 12:07 01/23/17 12:07 Intake & Output 01/22/17 01/23/17 01/24/17 06:59 06:59 06:59 Intake Total 1891 1196 Output Total 550 300 Balance 1341 896 Weight 63 kg 63 kg General appearance: PRESENT: no acute distress, disheveled, obese, other - Severe kyphoscoliosis Head exam: PRESENT: atraumatic, normocephalic Eye exam: PRESENT: conjunctiva pale, EOMI Mouth exam: PRESENT: moist, neck supple Neck exam: ABSENT: carotid bruit, JVD, lymphadenopathy, thyromegaly Respiratory exam: PRESENT: decreased breath sounds, prolonged expiratory phas, rales, rhonchi, unlabored, other - Severe kyphoscoliosis Pulses: PRESENT: normal radial pulses GI/Abdominal exam: PRESENT: ascites Rectal exam: PRESENT: deferred Musculoskeletal exam: PRESENT: normal inspection Neurological exam: PRESENT: alert, awake Psychiatric exam: PRESENT: normal mood Skin exam: PRESENT: dry, warm Results Laboratory Results: 01/16/17 01/16/17 01/17/17 21:12 21:12 03:24 Creatine Kinase 92 73 CK-MB (CK-2) 1.02 Troponin I < 0.012 NT-Pro-B Natriuret Pep 01/17/17 01/17/17 01/17/17 03:24 08:48 08:48 Creatine Kinase 75 CK-MB (CK-2) 0.92 1.07 Troponin I < 0.012 < 0.012 NT-Pro-B Natriuret Pep 01/17/17 08:48 Creatine Kinase CK-MB (CK-2) Troponin I NT-Pro-B Natriuret Pep 212 Impressions: Chest/Abdomen CTA 01/16/17 16:18 IMPRESSION: 1. There is no evidence of pulmonary emboli. 2. There is a large hiatal with the stomach above the diaphragm. 3. There is significant scoliosis. Lung Scan-VQ NM 01/18/17 00:00 IMPRESSION: No findings worrisome for acute pulmonary emboli. Mediastinal defect on the ventilation and perfusion imaging correlating with a large retrocardiac hernia containing nearly the entire stomach. Chronic elevation left hemidiaphragm Modified Barium Swallow 01/21/17 00:00 IMPRESSION: NO EVIDENCE OF LARYNGEAL PENETRATION OR TRACHEAL ASPIRATIONPLEASE SEE SPEECH PATHOLOGIST REPORT FOR OTHER FINDINGS AND RECOMMENDATIONS. Assessment & Plan - Diagnosis (1) Ambulatory dysfunction Is this a current diagnosis for this admission?: Yes (2) Dysphagia, unspecified Qualifiers: Dysphagia type: unspecified Qualified Code(s): R13.10 - Dysphagia, unspecified Is this a current diagnosis for this admission?: YesPlan: Modified barium swallow reportedly negative for aspiration or laryngeal penetration (3) Dyspnea Qualifiers: Dyspnea type: dyspnea on exertion Qualified Code(s): R06.09 - Other forms of dyspnea Is this a current diagnosis for this admission?: YesPlan: Severe obstructive ventilatory defect no restrictive defect significant hyperinflation and air-trapping severe decrease in diffusion capacity (4) Hiatal hernia Is this a current diagnosis for this admission?: YesPlan: Consider referral to surgeon for laparoscopic Willis fundoplication Dr.Cecilia Valdez actively seeking acceptable course of action and awaiting input from physician daughter (5) Kyphoscoliosis deformity of spine Is this a current diagnosis for this admission?: YesPlan: Unchanged
--- NOTE | 2017-01-23 14:43 | PDOC TRANSFER SUMMARY ---
General Admission Date/PCP: 01/16/17 18:17 JOAQUINA PRABHAKAR MD Admission Date: 01/16/17 Transfer Date: 01/23/17 Accepting Facility: [facility] Accepting Physician: Dr. Gambino Resuscitation Status: Full Code - Transfer Diagnosis (1) Positive cardiac stress test Is this a current diagnosis for this admission?: Yes (2) Pulmonary hypertension Is this a current diagnosis for this admission?: Yes (3) Acute bronchitis Is this a current diagnosis for this admission?: Yes (4) Ambulatory dysfunction Is this a current diagnosis for this admission?: Yes (5) Dysphagia, unspecified Is this a current diagnosis for this admission?: Yes (6) Dyspnea Is this a current diagnosis for this admission?: Yes (7) Hiatal hernia Is this a current diagnosis for this admission?: Yes (8) Hypertension Is this a current diagnosis for this admission?: Yes (9) Kyphoscoliosis deformity of spine Is this a current diagnosis for this admission?: Yes - Transfer Medications Home Medications: Albuterol Sulfate [Proair HFA] 1 puff IH Q4HP PRN 01/16/17 Enalapril Maleate [Vasotec 5 mg Tablet] 5 mg PO DAILY 01/16/17 Ergocalciferol (Vitamin D2) [Drisdol 50,000 unit (1.25MG) Capsule] 50,000 units PO [id number] 01/16/17 Omeprazole 20 mg PO BID 01/16/17 Transfer Medications: Current Medications Acetaminophen (Tylenol 325 Mg Tablet) 650 mg PO Q4HP PRN PRN Reason: FOR PAIN OR TEMP Stop: 02/15/17 18:15 Albuterol (Ventolin 0.083% Neb 2.5 Mg/3 Ml Ampul) 2.5 mg NEB RTQ4HP PRN PRN Reason: SHORTNESS OF BREATH Stop: 02/15/17 18:13 Last Admin: 01/23/17 12:03 Dose: 2.5 mg Budesonide/Formoterol Fumarate (Symbicort Hfa 80-4.5 Mcg Inhaler 6.9 Gm) 2 puff IH Q12 JELLY Stop: 02/15/17 21:59 Last Admin: 01/23/17 10:45 Dose: 2 puff Diphenhydramine/Hydrocorti/Nystatin (Magic Mouthwash (Omh Formula) Susp) 5 ml PO QID JELLY Stop: 02/21/17 17:59 Last Admin: 01/23/17 14:33 Dose: 5 ml Enalapril Maleate (Vasotec 5 Mg Tablet) 5 mg PO DAILY JELLY Stop: 02/18/17 09:59 Last Admin: 01/23/17 10:45 Dose: 5 mg Ergocalciferol (Drisdol 50,000 Unit (1.25mg) Capsule) 50,000 unit PO [id number]@ 1000 JELLY Stop: 03/01/17 09:59 Hydroxyzine HCl (Atarax 10 Mg Tablet) 10 mg PO Q6HP PRN PRN Reason: ANXIETY Stop: 02/22/17 13:23 Ketorolac Tromethamine (Toradol Inj/Pf 30 Mg/1 Ml Sdv) 15 mg IV Q6HP PRN PRN Reason: PAIN Stop: 01/23/17 16:00 Lansoprazole (Prevacid 30 Mg Odt Tablet) 30 mg PO BID JELLY Stop: 02/17/17 17:59 Last Admin: 01/23/17 10:44 Dose: 30 mg Lidocaine (Lidoderm 5% (700 Mg) Transdermal Patch) 1 patch TP DAILY JELLY Stop: 02/21/17 09:59 Last Admin: 01/23/17 10:45 Dose: 1 patch Prednisone (Deltasone 20 Mg Tablet) 20 mg PO BID JELLY Stop: 02/21/17 09:59 Last Admin: 01/23/17 10:45 Dose: 20 mg Sodium Chloride (Saline Flush 2.5 Ml Monoject Prefil Syrin) 2.5 ml IV Q8 JELLY Stop: 02/15/17 21:59 Last Admin: 01/23/17 14:33 Dose: 2.5 ml Sodium Chloride (Morgan Nasal [place] 44 Ml Bottle) 2 spray NASL Q6 JELLY Stop: 02/21/17 11:59 Last Admin: 01/23/17 12:36 Dose: 2 spray Tramadol HCl (Ultram 50 Mg Tablet) 50 mg PO Q6HP PRN PRN Reason: PAIN Stop: 01/28/17 22:06 - Allergies Allergies/Adverse Reactions: Benzodiazepines Allergy (Verified 07/03/12 19:19) midazolam HCl [From Versed] Allergy (Verified 07/03/12 19:19) - Diet/Activity Discharge Diet: Regular Discharge Activity: Activity As Tolerated Hospital Course Hospital Course: A 76-year-old female with a past medical history of kyphoscoliosis, osteoarthritis, hypertension, who presented to the emergency department with shortness of breath. Patient had recently traveled back from [place] and approximately 1 day after this began having flulike symptoms which had resolved subsequently. She began having shortness of breath which was increased and presented to the emergency department. Patient had been having some chronic dyspnea on exertion which had gotten worse over time. Through the course of her thorough evaluation, patient has received pulmonary function tests, stress test, and echocardiogram. Patient was found on CTA to have a significant hiatal hernia. Placed on doxycycline and prednisone in for her bronchitis. Echocardiogram revealed an EF greater than 65% with grade 1 diastolic dysfunction and moderate pulmonary hypertension. Patient underwent stress test evaluation and was found to have a positive stress test with a mild inferior lateral defect with an SDS of 1. Due to her need for laparoscopic Artem fundoplication or open Artem fundoplication, elected to send patient for cardiac catheterization for evaluation of both her positive stress test and her pulmonary hypertension. Patient is amenable to this plan as is her daughter. Dr. Gambino, accepted this patient in transfer. Physical Exam Vital Signs: Temp Pulse Resp BP Pulse Ox 97.5 F 99 16 130/69 H 100 01/23/17 12:07 01/23/17 14:00 01/23/17 12:07 01/23/17 12:07 01/23/17 12:07 Intake & Output 01/22/17 01/23/17 01/24/17 06:59 06:59 06:59 Intake Total 1891 1196 Output Total 550 300 Balance 1341 896 Weight 63 kg 63 kg Exam: GENERAL: No acute distress HEENT: Conjunctiva clear, nonicteric, moist mucous membranes, no JVD, midline trachea RESPIRATORY: Clear to auscultation bilaterally, no wheezes, no rhonchi CARDIAC: Regular rate and rhythm, no murmurs/gallops/rubs ABDOMEN: Soft, nondistended, nontender, positive bowel sounds, no rebound, no guarding EXTREMETIES: No edema, cyanosis, clubbing NEUROLOGIC: Alert, oriented to person/place/time, CN's grossly intact, no focal deficits SKIN: No rash, wounds PSYCH: Normal mood, normal affect Musculoskeletal: Significant kyphoscoliosis noted thoracic spine Results Laboratory Results: 01/16/17 01/16/17 01/17/17 21:12 21:12 03:24 Creatine Kinase 92 73 CK-MB (CK-2) 1.02 Troponin I < 0.012 NT-Pro-B Natriuret Pep 01/17/17 01/17/17 01/17/17 03:24 08:48 08:48 Creatine Kinase 75 CK-MB (CK-2) 0.92 1.07 Troponin I < 0.012 < 0.012 NT-Pro-B Natriuret Pep 01/17/17 08:48 Creatine Kinase CK-MB (CK-2) Troponin I NT-Pro-B Natriuret Pep 212 Impressions: Chest/Abdomen CTA 01/16/17 16:18 IMPRESSION: 1. There is no evidence of pulmonary emboli. 2. There is a large hiatal with the stomach above the diaphragm. 3. There is significant scoliosis. Lung Scan-VQ NM 01/18/17 00:00 IMPRESSION: No findings worrisome for acute pulmonary emboli. Mediastinal defect on the ventilation and perfusion imaging correlating with a large retrocardiac hernia containing nearly the entire stomach. Chronic elevation left hemidiaphragm Modified Barium Swallow 01/21/17 00:00 IMPRESSION: NO EVIDENCE OF LARYNGEAL PENETRATION OR TRACHEAL ASPIRATIONPLEASE SEE SPEECH PATHOLOGIST REPORT FOR OTHER FINDINGS AND RECOMMENDATIONS. Plan Time Spent: Greater than 30 Minutes
[2017-01-30] MEDS ORDERED: ERGOCALCIFEROL (VITAMIN D2) 50000 UNIT (1.25 MG) CAPSULE PO SCH (10:00)
== END 2017-01-23 18:10 | disposition short-term general hospital (02) | DRG 203 ==
LOC: ER 14:57 → EH 18:02 → UNDOADMIN 18:02 → OBSVTOIN 18:17 → INTOOBSV 18:17 → EH 18:17 → 4N 20:26 → OBSVTOIN 01-19 06:46
PROVIDERS: ADMIT Family Medicine; ATTEND Family Medicine
DX: J20.9 Acute bronchitis, unspecified (principal); R94.39 Abnormal result of other cardiovascular function study; R06.09 Other forms of dyspnea; R53.1 Weakness; I27.2 Other secondary pulmonary hypertension; R13.10 Dysphagia, unspecified; K21.9 Gastro-esophageal reflux disease without esophagitis; K44.9 Diaphragmatic hernia without obstruction or gangrene; I10 Essential (primary) hypertension; M19.90 Unspecified osteoarthritis, unspecified site; M41.9 Scoliosis, unspecified; Z79.899 Other long term (current) drug therapy; Z88.8 Allergy status to other drugs, medicaments and biological substances
CPT/HCPCS: 36415; 71275; 74230; 78452; 78582; 80053; 81001; 82550; 82553; 83880; 84484; 85025; 85379; 85610; 87086; 87088; 87186; 93005; 93010; 93017; 93306; 94060; 94640; 94727; 94729; 96372; 99285; A9500; A9540; A9567; G0378; G8978-GP; G8979-GP; G8996-GN; G8997-GN; G8998-GN; J0280; J1650; J2785; J3490; J7512; J7620; Q9969